=== PATIENT | male | born 1970 | race Caucasian/White ===

== ENCOUNTER 2017-07-26 17:43 | Emergency (ER) | payer OTHER ==
[~2017-07-26] VITALS: Ht 185.4 cm; Wt 104.3 kg
[~2017-07-26 17:43] MED LIST: 'PARAFON FORTE500 M1 PO; AUGMENTIN 875 M1 TAB PO; LISINOPRIL AND1 TA1 PO; PERCOCET 325 MG1 TA3 PO; PREDNISONE10 MG PO; VICODIN 500 MG-1 TAB PO
[2017-07-26] MEDS ORDERED: Motrin,Rufen800 MG PO (20:37)
[2017-07-26] MEDS ORDERED: CYCLOBENZAPRINE5 M3 PO (20:37)
== END 2017-07-26 20:49 | disposition home or self-care (01) ==
LOC: ED 17:43
DX: S49.91XA Unspecified injury of right shoulder and upper arm, initial encounter (principal); F17.200 Nicotine dependence, unspecified, uncomplicated; W19.XXXA Unspecified fall, initial encounter; Y93.89 Activity, other specified; Y92.009 Unspecified place in unspecified non-institutional (private) residence as the place of occurrence of the external cause; Y99.8 Other external cause status

== ENCOUNTER 2017-09-17 20:29 | Emergency (ER) | payer OTHER ==
[~2017-09-17] VITALS: Ht 185.4 cm; Wt 104.3 kg
[~2017-09-17 20:29] MED LIST changes: +CYCLOBENZAPRINE5 M3 PO; +Motrin,Rufen800 MG PO
[2017-09-17] MEDS ORDERED: PERCOCET 10-321 EACH PO (22:18)
[2017-09-17] MEDS ORDERED: ALPRAZOLAM0.5 M3 PO (22:18)
[2017-09-17 23:00] LABS: BASO % 0.7 % (0.0-1.0); EOS # 0.6 10*3/uL (0.0-0.4); HEMATOCRIT 35.4 % (42.0-52.0); HEMOGLOBIN 12.2 g/dl (14.0-18.0); LYMPH # 1.7 10*3/uL (1.3-4.4); LYMPH % 31.8 % (27.0-41.0); MEAN CELL VOLUME 87.4 fl (80.0-94.0); MEAN CORPUSCULAR HGB 30.1 pg (27.0-31.0); MEAN CORPUSCULAR HGB CONC 34.5 g/dl (33.0-37.0); MEAN PLATELET VOLUME 8.5 fl (9.6-12.3); MONO # 0.7 10*3/uL (0.1-1.0); MONO % 12.2 % (3.0-9.0); NEUT # 2.4 10*3/uL (2.3-7.9); NEUT % 44.1 % (47.0-73.0); PLATELET COUNT AUTOMATED 180 10*3/uL (130-400); RED BLOOD COUNT 4.05 10*6/uL (4.50-5.90); RED CELL DISTRI WIDTH 12.4 % (0-14.5); WHITE BLOOD COUNT 5.3 10*3/uL (4.8-10.8)
[2017-09-17 23:14] LABS: ACT PARTIAL THROMBO TIME 28.7 SECONDS (20.8-31.5)
[2017-09-17 23:16] LABS: ALBUMIN 3.3 gm/dl (3.1-4.5); ALKALINE PHOSPHATASE 62 U/L (45-117); BUN 19 mg/dl (7-24); CHLORIDE 100 mmol/L (98-107); CREATININE 0.96 mg/dL (0.70-1.30); POTASSIUM 3.8 mmol/L (3.5-5.1); SGOT/AST 20 IU/L (3-35); SGPT/ALT 26 U/L (12-78); SODIUM 135 mmol/L (136-145); TOTAL PROTEIN 6.5 gm/dL (6.4-8.2)
[2017-09-17 23:17] LABS: TROPONIN I < 0.015 ng/ml (<0.045)
== END 2017-09-18 02:45 | disposition short-term general hospital (02) ==
LOC: ED 20:29
PROVIDERS: Internal Medicine
DX: G93.9 Disorder of brain, unspecified (principal); F17.200 Nicotine dependence, unspecified, uncomplicated; Z79.899 Other long term (current) drug therapy

== ENCOUNTER 2017-11-13 10:33 | Emergency (ER) | payer OTHER ==
[~2017-11-13] VITALS: Ht 185.4 cm; Wt 106.6 kg
[~2017-11-13 10:33] MED LIST changes: +ALPRAZOLAM0.5 M3 PO; +PERCOCET 10-321 EACH PO
[2017-11-13 11:06] LABS: BASO % 0.3 % (0.0-1.0); EOS # 0.6 10*3/uL (0.0-0.4); EOS % 9.6 % (1.0-4.0); HEMOGLOBIN 11.2 g/dl (14.0-18.0); MEAN CELL VOLUME 88.1 fl (80.0-94.0); MEAN CORPUSCULAR HGB CONC 32.9 g/dl (33.0-37.0); MEAN PLATELET VOLUME 8.7 fl (9.6-12.3); MONO # 0.5 10*3/uL (0.1-1.0); MONO % 8.7 % (3.0-9.0); NEUT % 65.1 % (47.0-73.0); PLATELET COUNT AUTOMATED 234 10*3/uL (130-400); RED BLOOD COUNT 3.86 10*6/uL (4.50-5.90); WHITE BLOOD COUNT 6.1 10*3/uL (4.8-10.8)
[2017-11-13 11:24] LABS: ALBUMIN 2.9 gm/dl (3.1-4.5); ALKALINE PHOSPHATASE 57 U/L (45-117); BUN 12 mg/dl (7-24); CHLORIDE 106 mmol/L (98-107); CREATININE 0.86 mg/dL (0.70-1.30); SGOT/AST 19 IU/L (3-35); SGPT/ALT 25 U/L (12-78); SODIUM 138 mmol/L (136-145); TOTAL PROTEIN 6.6 gm/dL (6.4-8.2)
[2017-11-13 11:27] LABS: TROPONIN I 0.243 ng/ml (<0.045)
== END 2017-11-13 17:25 | disposition short-term general hospital (02) ==
LOC: ED 10:33
PROVIDERS: Nurse Practitioner Family
DX: J18.1 Lobar pneumonia, unspecified organism (principal); R79.89 Other specified abnormal findings of blood chemistry

== ENCOUNTER → 2017-11-24 | Outpatient (CLI) | payer OTHER ==
[2017-11-24 11:42] LABS: INTERNATIONAL NORM RATIO 2.6 (2.0-3.5)
== END | disposition home or self-care (01) ==
LOC: LAB 11:22
PROVIDERS: Specialist
DX: Z51.81 Encounter for therapeutic drug level monitoring (principal); Z79.01 Long term (current) use of anticoagulants

== ENCOUNTER → 2017-11-29 | Outpatient (CLI) | payer OTHER ==
[2017-11-29 14:35] LABS: INTERNATIONAL NORM RATIO 3.2 (2.0-3.5)
== END | disposition home or self-care (01) ==
LOC: LAB 13:42
PROVIDERS: Specialist
DX: I74.9 Embolism and thrombosis of unspecified artery (principal); I63.9 Cerebral infarction, unspecified

== ENCOUNTER → 2017-12-06 | Outpatient (CLI) | payer OTHER ==
[2017-12-06 10:08] LABS: BASO % 0.4 % (0.0-1.0); EOS # 0.6 10*3/uL (0.0-0.4); EOS % 9.3 % (1.0-4.0); HEMATOCRIT 34.8 % (42.0-52.0); HEMOGLOBIN 11.4 g/dl (14.0-18.0); LYMPH # 1.1 10*3/uL (1.3-4.4); MEAN CELL VOLUME 88.1 fl (80.0-94.0); MEAN CORPUSCULAR HGB 28.9 pg (27.0-31.0); MEAN CORPUSCULAR HGB CONC 32.8 g/dl (33.0-37.0); MEAN PLATELET VOLUME 8.7 fl (9.6-12.3); MONO # 0.7 10*3/uL (0.1-1.0); MONO % 10.5 % (3.0-9.0); NEUT # 4.3 10*3/uL (2.3-7.9); NEUT % 63.4 % (47.0-73.0); PLATELET COUNT AUTOMATED 250 10*3/uL (130-400); RED BLOOD COUNT 3.95 10*6/uL (4.50-5.90); RED CELL DISTRI WIDTH 13.5 % (0-14.5); WHITE BLOOD COUNT 6.8 10*3/uL (4.8-10.8)
[2017-12-06 10:11] LABS: INTERNATIONAL NORM RATIO 4.3 (2.0-3.5)
== END | disposition home or self-care (01) ==
LOC: LAB 09:50
PROVIDERS: Specialist; Student in an Organized Health Care Education/Training Program
DX: C34.81 Malignant neoplasm of overlapping sites of right bronchus and lung (principal); I63.40 Cerebral infarction due to embolism of unspecified cerebral artery

== ENCOUNTER → 2017-12-13 | Outpatient (CLI) | payer OTHER ==
[2017-12-13 12:50] LABS: INTERNATIONAL NORM RATIO 2.3 (2.0-3.5)
== END | disposition home or self-care (01) ==
LOC: LAB 12:28
PROVIDERS: Specialist
DX: I63.8 Other cerebral infarction (principal); I76 Septic arterial embolism

== ENCOUNTER → 2017-12-21 | Outpatient (CLI) | payer OTHER ==
[2017-12-21 09:42] LABS: INTERNATIONAL NORM RATIO 1.1 (2.0-3.5)
== END | disposition home or self-care (01) ==
LOC: LAB 09:17
PROVIDERS: Specialist
DX: I74.9 Embolism and thrombosis of unspecified artery (principal); I63.40 Cerebral infarction due to embolism of unspecified cerebral artery

== ENCOUNTER → 2018-01-03 | Outpatient (CLI) | payer OTHER ==
[2018-01-03 12:00] LABS: INTERNATIONAL NORM RATIO 1.8 (2.0-3.5)
== END | disposition home or self-care (01) ==
LOC: LAB 11:38
PROVIDERS: Specialist
DX: I74.9 Embolism and thrombosis of unspecified artery (principal); I63.9 Cerebral infarction, unspecified

== ENCOUNTER → 2018-01-10 | Outpatient (CLI) | payer OTHER ==
[2018-01-10 14:27] LABS: INTERNATIONAL NORM RATIO 2.9 (2.0-3.5)
== END | disposition home or self-care (01) ==
LOC: LAB 13:59
PROVIDERS: Specialist
DX: I63.40 Cerebral infarction due to embolism of unspecified cerebral artery (principal); I23.6 Thrombosis of atrium, auricular appendage, and ventricle as current complications following acute myocardial infarction

== ENCOUNTER → 2018-01-17 | Outpatient (CLI) | payer OTHER ==
[2018-01-17 09:45] LABS: INTERNATIONAL NORM RATIO 2.3 (2.0-3.5)
== END | disposition home or self-care (01) ==
LOC: LAB 09:21
PROVIDERS: Specialist
DX: I63.40 Cerebral infarction due to embolism of unspecified cerebral artery (principal)

== ENCOUNTER → 2018-01-25 | Outpatient (CLI) | payer OTHER ==
[2018-01-25 12:31] LABS: INTERNATIONAL NORM RATIO 1.8 (2.0-3.5)
== END | disposition home or self-care (01) ==
LOC: LAB 10:30
PROVIDERS: Specialist
DX: I74.9 Embolism and thrombosis of unspecified artery (principal); I63.9 Cerebral infarction, unspecified

== ENCOUNTER → 2018-01-31 | Outpatient (CLI) | payer OTHER ==
[~2018-01-31] MED LIST changes: +AMOXICILLIN500 M2 PO
[2018-01-31 10:33] LABS: INTERNATIONAL NORM RATIO 2.5 (2.0-3.5)
== END | disposition home or self-care (01) ==
LOC: LAB 10:01
PROVIDERS: Specialist
DX: I63.9 Cerebral infarction, unspecified (principal); I74.9 Embolism and thrombosis of unspecified artery

== ENCOUNTER 2018-02-06 10:35 | Emergency (ER) | payer OTHER ==
[~2018-02-06] VITALS: Ht 182.8 cm; Wt 108.9 kg
[~2018-02-06 10:35] MED LIST changes: -AMOXICILLIN500 M2 PO
[2018-02-06] MEDS ORDERED: AMOXICILLIN500 M2 PO (10:43)
== END 2018-02-06 11:21 | disposition home or self-care (01) ==
LOC: ED 10:35
DX: H60.92 Unspecified otitis externa, left ear (principal); H66.92 Otitis media, unspecified, left ear

== ENCOUNTER → 2018-02-07 | Outpatient (CLI) | payer OTHER ==
[~2018-02-07] MED LIST changes: +AMOXICILLIN500 M2 PO
[2018-02-07 09:40] LABS: INTERNATIONAL NORM RATIO 2.1 (2.0-3.5)
== END | disposition home or self-care (01) ==
LOC: LAB 09:18
PROVIDERS: Specialist
DX: I21.9 Acute myocardial infarction, unspecified (principal)

== ENCOUNTER → 2018-02-15 | Outpatient (CLI) | payer OTHER ==
[2018-02-15 10:38] LABS: INTERNATIONAL NORM RATIO 2.2 (2.0-3.5)
== END | disposition home or self-care (01) ==
LOC: LAB 10:12
PROVIDERS: Specialist
DX: I74.9 Embolism and thrombosis of unspecified artery (principal); I63.9 Cerebral infarction, unspecified

== ENCOUNTER → 2018-02-22 | Outpatient (CLI) | payer OTHER ==
[2018-02-22 10:37] LABS: INTERNATIONAL NORM RATIO 1.6 (2.0-3.5)
== END | disposition home or self-care (01) ==
LOC: LAB 10:02
PROVIDERS: Specialist
DX: I63.9 Cerebral infarction, unspecified (principal); I74.9 Embolism and thrombosis of unspecified artery

== ENCOUNTER → 2018-02-28 | Outpatient (CLI) | payer OTHER ==
[~2018-02-28] MED LIST changes: +ASPIRIN ADULT L81 M1 PO; +COUMADIN10 M1 PO; +COUMADIN7.5 M1 PO
[2018-02-28 10:27] LABS: INTERNATIONAL NORM RATIO 1.8 (2.0-3.5)
== END | disposition home or self-care (01) ==
LOC: LAB 10:00
PROVIDERS: Specialist
DX: I63.9 Cerebral infarction, unspecified (principal); I74.9 Embolism and thrombosis of unspecified artery

== ENCOUNTER → 2018-03-07 | Outpatient (CLI) | payer OTHER | END | disposition home or self-care (01) | LOC: LAB 09:53 | PROVIDERS: Specialist | DX: I63.9 Cerebral infarction, unspecified (principal); I74.9 Embolism and thrombosis of unspecified artery ==

== ENCOUNTER → 2018-03-14 | Outpatient (CLI) | payer OTHER ==
[2018-03-14 13:05] LABS: INTERNATIONAL NORM RATIO 1.7 (2.0-3.5)
== END | disposition home or self-care (01) ==
LOC: LAB 11:16
PROVIDERS: Specialist
DX: I74.9 Embolism and thrombosis of unspecified artery (principal); I63.9 Cerebral infarction, unspecified

== ENCOUNTER → 2018-03-21 | Outpatient (CLI) | payer OTHER ==
[2018-03-21 10:35] LABS: INTERNATIONAL NORM RATIO 1.8 (2.0-3.5)
[2018-03-21 10:53] LABS: BODY FLUID WBC 165 /uL
[2018-03-21 11:41] LABS: BF LYMPHOCYTES 37 %; BF MACROPHAGES 56 %; BF NEUTROPHILS 7 %
== END ==
LOC: LAB 10:10
PROVIDERS: Orthopaedic Surgery; Specialist
DX: I74.9 Embolism and thrombosis of unspecified artery (principal); M25.469 Effusion, unspecified knee

== ENCOUNTER → 2018-03-28 | Outpatient (CLI) | payer OTHER ==
[2018-03-28 08:29] LABS: INTERNATIONAL NORM RATIO 2.1 (2.0-3.5)
== END | disposition home or self-care (01) ==
LOC: LAB 08:06
PROVIDERS: Specialist
DX: I23.6 Thrombosis of atrium, auricular appendage, and ventricle as current complications following acute myocardial infarction (principal); I63.40 Cerebral infarction due to embolism of unspecified cerebral artery

== ENCOUNTER → 2018-04-04 | Outpatient (CLI) | payer OTHER ==
[2018-04-04 12:03] LABS: INTERNATIONAL NORM RATIO 1.4 (2.0-3.5)
== END | disposition home or self-care (01) ==
LOC: LAB 11:39
PROVIDERS: Specialist
DX: I63.40 Cerebral infarction due to embolism of unspecified cerebral artery (principal); I74.2 Embolism and thrombosis of arteries of the upper extremities

== ENCOUNTER 2018-04-05 20:33 | Inpatient (IN) | payer OTHER ==
[~2018-04-05] VITALS: Ht 185.4 cm; Wt 105.9 kg
--- NOTE | ~2018-04-05 | EKG ---
[place], [place] ELECTROCARDIOGRAM REPORT NAME: DUKE RAMOS JR UNIT #: [id number] ROOM: 424 DOCTOR: JESSICA DRAFT REPORT BIRTHDATE: [birth year] [facility] Test Date: 2018-04-06 Test Time: 02:52:36 Pat Name: DUKE RAMOS Department: Room: 424 Gender: M Associate Director Finance: Epifanio Artis : 1970 Requested By: CJ NETTLES Order Number: [id number] Reading MD: Akbar Mars MD Measurements Intervals [place] Rate: 64 P: 48 [place]: 183 QRS: 2 QRSD: 111 T: 15 QT: 414 QTc: 427 Interpretive Statements Sinus rhythm Abnormal R-wave progression, early transition Baseline wander in lead(s) V2 Electronically Signed On 04-06-2018 15:53:10 PDT by Akbar Mars MD CM:EKGRPT:ELECTROCARDIOGRAM REPORT [id number] CJ HORTON DRAFT REPORT CJ NETTLES DO
--- NOTE | ~2018-04-05 | EKG ---
[place], [place] ELECTROCARDIOGRAM REPORT NAME: DUKE RAMOS JR UNIT #: [id number] ROOM: 424 DOCTOR: JESSICA DRAFT REPORT BIRTHDATE: [birth year] [facility] Test Date: 2018-04-05 Test Time: 20:40:29 Pat Name: DUKE RAMOS Department: Room: 424 Gender: M Medical Care Administrator: Pricila Vazquez : 1970 Requested By: CJ NETTLES Order Number: [id number] Reading MD: Akbar Mars MD Measurements Intervals [place] Rate: 67 P: 38 [place]: 183 QRS: -16 QRSD: 103 T: 7 QT: 393 QTc: 415 Interpretive Statements Sinus rhythm Borderline left axis deviation Abnormal R-wave progression, early transition Electronically Signed On 04-06-2018 15:49:07 PDT by Akbar Mars MD CM:EKGRPT:ELECTROCARDIOGRAM REPORT [id number] CJ HORTON DRAFT REPORT CJ NETTLES DO
[~2018-04-05 20:33] MED LIST changes: -ASPIRIN ADULT L81 M1 PO; -COUMADIN10 M1 PO; -COUMADIN7.5 M1 PO
[2018-04-05 20:36] VITALS: BP 163/105
[2018-04-05 20:48] LABS: BASO % 0.7 % (0.0-1.0); HEMATOCRIT 36.3 % (42.0-52.0); LYMPH # 0.8 10*3/uL (1.3-4.4); LYMPH % 28.2 % (27.0-41.0); MEAN CELL VOLUME 83.6 fl (80.0-94.0); MEAN CORPUSCULAR HGB 27.6 pg (27.0-31.0); MEAN CORPUSCULAR HGB CONC 33.1 g/dl (33.0-37.0); MEAN PLATELET VOLUME 8.8 fl (9.6-12.3); MONO # 0.4 10*3/uL (0.1-1.0); MONO % 14.4 % (3.0-9.0); NEUT # 1.6 10*3/uL (2.3-7.9); NEUT % 55.4 % (47.0-73.0); PLATELET COUNT AUTOMATED 219 10*3/uL (130-400); RED BLOOD COUNT 4.34 10*6/uL (4.50-5.90); RED CELL DISTRI WIDTH 14.1 % (0-14.5); WHITE BLOOD COUNT 2.9 10*3/uL (4.8-10.8)
[2018-04-05 20:58] LABS: ACT PARTIAL THROMBO TIME 31.2 SECONDS (20.8-31.5); INTERNATIONAL NORM RATIO 1.3 (2.0-3.5)
[2018-04-05 21:04] LABS: ALBUMIN 3.4 gm/dl (3.1-4.5); ALKALINE PHOSPHATASE 86 U/L (45-117); BUN 12 mg/dl (7-24); CHLORIDE 100 mmol/L (98-107); CREATININE 0.88 mg/dL (0.70-1.30); POTASSIUM 4.1 mmol/L (3.5-5.1); SGOT/AST 17 IU/L (3-35); SGPT/ALT 23 U/L (12-78); SODIUM 133 mmol/L (136-145); TOTAL PROTEIN 7.3 gm/dL (6.4-8.2)
[2018-04-05 21:12] LABS: TROPONIN I < 0.015 ng/ml (<0.045)
[2018-04-05 21:37] VITALS: BP 106/80
[2018-04-05 22:16] VITALS: BP 151/108
[2018-04-05 22:51] VITALS: BP 144/96
[2018-04-05] MEDS ORDERED: COUMADIN7.5 M1 PO (23:31)
[2018-04-05] MEDS ORDERED: COUMADIN10 M1 PO (23:31)
[2018-04-05] MEDS ORDERED: ASPIRIN ADULT L81 M1 PO (23:32)
[2018-04-06] VITALS: BP 152/97
[2018-04-06 02:42] LABS: BASO % 0.3 % (0.0-1.0); EOS # 0.1 10*3/uL (0.0-0.4); EOS % 1.9 % (1.0-4.0); HEMATOCRIT 34.2 % (42.0-52.0); HEMOGLOBIN 11.4 g/dl (14.0-18.0); LYMPH % 31.1 % (27.0-41.0); MEAN CELL VOLUME 83.2 fl (80.0-94.0); MEAN CORPUSCULAR HGB 27.7 pg (27.0-31.0); MEAN CORPUSCULAR HGB CONC 33.3 g/dl (33.0-37.0); MEAN PLATELET VOLUME 8.3 fl (9.6-12.3); MONO # 0.6 10*3/uL (0.1-1.0); MONO % 18.1 % (3.0-9.0); NEUT # 1.5 10*3/uL (2.3-7.9); NEUT % 48.3 % (47.0-73.0); PLATELET COUNT AUTOMATED 190 10*3/uL (130-400); RED BLOOD COUNT 4.11 10*6/uL (4.50-5.90); RED CELL DISTRI WIDTH 14.3 % (0-14.5); WHITE BLOOD COUNT 3.2 10*3/uL (4.8-10.8)
[2018-04-06 02:55] LABS: ACT PARTIAL THROMBO TIME 30.6 SECONDS (20.8-31.5); INTERNATIONAL NORM RATIO 1.4 (2.0-3.5)
[2018-04-06 02:57] LABS: BUN 10 mg/dl (7-24); CHLORIDE 102 mmol/L (98-107); CREATININE 0.82 mg/dL (0.70-1.30); POTASSIUM 3.5 mmol/L (3.5-5.1); SODIUM 135 mmol/L (136-145)
[2018-04-06 03:02] LABS: CHOLESTEROL 145 mg/dL (<200); FREE T4 0.91 ng/dl (0.76-1.46); HDL CHOLESTEROL 51 mg/dl (40-60); LDL CHOLESTEROL 81 mg/dL (9-159); PHOSPHOROUS 3.4 mg/dL (2.5-4.9); TRIGLYCERIDES 63 mg/dl (<150); VLDL CHOLESTEROL 13 mg/dL (6-40)
[2018-04-06 06:38] LABS: VITAMIN D, 25-HYDROXY 45.7 ng/mL (30-100)
[2018-04-06 08:00] VITALS: BP 136/90
== END 2018-04-06 10:45 | disposition home or self-care (01) | DRG 313 ==
LOC: ED 20:33 → EDHOLD 21:30 → 4E 21:51
PROVIDERS: Student in an Organized Health Care Education/Training Program
DX: R07.89 Other chest pain (principal); I25.2 Old myocardial infarction; C78.7 Secondary malignant neoplasm of liver and intrahepatic bile duct; C79.31 Secondary malignant neoplasm of brain; E44.1 Mild protein-calorie malnutrition; C79.51 Secondary malignant neoplasm of bone; C34.90 Malignant neoplasm of unspecified part of unspecified bronchus or lung; E87.1 Hypo-osmolality and hyponatremia; C79.89 Secondary malignant neoplasm of other specified sites; I51.3 Intracardiac thrombosis, not elsewhere classified; D64.9 Anemia, unspecified; D72.819 Decreased white blood cell count, unspecified; E78.5 Hyperlipidemia, unspecified; R79.1 Abnormal coagulation profile; G89.29 Other chronic pain; M54.5 Low back pain; I10 Essential (primary) hypertension; R00.1 Bradycardia, unspecified; Z87.01 Personal history of pneumonia (recurrent); Z86.73 Personal history of transient ischemic attack (TIA), and cerebral infarction without residual deficits; Z87.891 Personal history of nicotine dependence; Z82.49 Family history of ischemic heart disease and other diseases of the circulatory system; Z79.82 Long term (current) use of aspirin; Z79.01 Long term (current) use of anticoagulants; Z80.42 Family history of malignant neoplasm of prostate; Z84.89 Family history of other specified conditions; Z79.899 Other long term (current) drug therapy; Z68.30 Body mass index [BMI] 30.0-30.9, adult

== ENCOUNTER → 2018-04-26 | Outpatient (CLI) | payer OTHER ==
[~2018-04-26] MED LIST changes: +ASPIRIN ADULT L81 M1 PO; +COUMADIN10 M1 PO; +COUMADIN7.5 M1 PO
[2018-04-26 10:14] LABS: INTERNATIONAL NORM RATIO 3.2 (2.0-3.5)
== END | disposition home or self-care (01) ==
LOC: LAB 09:49
PROVIDERS: Specialist
DX: I63.40 Cerebral infarction due to embolism of unspecified cerebral artery (principal); I23.6 Thrombosis of atrium, auricular appendage, and ventricle as current complications following acute myocardial infarction

== ENCOUNTER → 2018-05-10 | Outpatient (CLI) | payer OTHER ==
[2018-05-10 10:38] LABS: BASO % 0.3 % (0.0-1.0); EOS # 0.1 10*3/uL (0.0-0.4); EOS % 2.2 % (1.0-4.0); HEMATOCRIT 36.9 % (42.0-52.0); HEMOGLOBIN 12.1 g/dl (14.0-18.0); LYMPH # 0.7 10*3/uL (1.3-4.4); LYMPH % 19.8 % (27.0-41.0); MEAN CELL VOLUME 85.4 fl (80.0-94.0); MEAN CORPUSCULAR HGB CONC 32.8 g/dl (33.0-37.0); MEAN PLATELET VOLUME 8.6 fl (9.6-12.3); MONO # 0.5 10*3/uL (0.1-1.0); MONO % 13.6 % (3.0-9.0); NEUT # 2.3 10*3/uL (2.3-7.9); NEUT % 63.8 % (47.0-73.0); PLATELET COUNT AUTOMATED 202 10*3/uL (130-400); RED BLOOD COUNT 4.32 10*6/uL (4.50-5.90); RED CELL DISTRI WIDTH 15.1 % (0-14.5); WHITE BLOOD COUNT 3.6 10*3/uL (4.8-10.8)
[2018-05-10 11:05] LABS: INTERNATIONAL NORM RATIO 2.2 (2.0-3.5)
[2018-05-10 11:10] LABS: ALBUMIN 3.6 gm/dl (3.1-4.5); BUN 17 mg/dl (7-24); CHLORIDE 103 mmol/L (98-107); CHOLESTEROL 187 mg/dL (<200); CREATININE 1.08 mg/dL (0.70-1.30); POTASSIUM 4.4 mmol/L (3.5-5.1); SGOT/AST 19 IU/L (3-35); SGPT/ALT 26 U/L (12-78); SODIUM 137 mmol/L (136-145); TRIGLYCERIDES 69 mg/dl (<150); VLDL CHOLESTEROL 14 mg/dL (6-40)
[2018-05-10 11:17] LABS: ALKALINE PHOSPHATASE 68 U/L (45-117); HDL CHOLESTEROL 65 mg/dl (40-60); LDL CHOLESTEROL 108 mg/dL (9-159); TOTAL PROTEIN 7.2 gm/dL (6.4-8.2)
== END | disposition home or self-care (01) ==
LOC: LAB 09:47
PROVIDERS: Specialist
DX: I25.10 Atherosclerotic heart disease of native coronary artery without angina pectoris (principal); I10 Essential (primary) hypertension; I63.40 Cerebral infarction due to embolism of unspecified cerebral artery; E78.2 Mixed hyperlipidemia; I63.8 Other cerebral infarction

== ENCOUNTER → 2018-05-16 | Outpatient (CLI) | payer OTHER ==
[2018-05-16 10:03] LABS: INTERNATIONAL NORM RATIO 2.3 (2.0-3.5)
== END | disposition home or self-care (01) ==
LOC: LAB 09:42
PROVIDERS: Specialist
DX: I74.9 Embolism and thrombosis of unspecified artery (principal); I63.8 Other cerebral infarction

== ENCOUNTER → 2018-06-06 | Outpatient (CLI) | payer OTHER ==
[2018-06-06 10:46] LABS: INTERNATIONAL NORM RATIO 1.9 (2.0-3.5)
== END | disposition home or self-care (01) ==
LOC: LAB 10:12
PROVIDERS: Specialist
DX: I63.40 Cerebral infarction due to embolism of unspecified cerebral artery (principal); I51.3 Intracardiac thrombosis, not elsewhere classified

== ENCOUNTER → 2018-06-20 | Outpatient (CLI) | payer OTHER ==
[2018-06-20 15:45] LABS: INTERNATIONAL NORM RATIO 3.6 (2.0-3.5)
== END | disposition home or self-care (01) ==
LOC: LAB 15:12
PROVIDERS: Specialist
DX: Z79.01 Long term (current) use of anticoagulants (principal)

== ENCOUNTER → 2018-07-25 | Outpatient (CLI) | payer OTHER ==
[2018-07-25 12:14] LABS: INTERNATIONAL NORM RATIO 2.8 (2.0-3.5)
== END ==
LOC: LAB 10:50
PROVIDERS: Specialist
DX: Z79.01 Long term (current) use of anticoagulants (principal)

== ENCOUNTER → 2018-08-08 | Outpatient (CLI) | payer OTHER ==
[2018-08-08 13:52] LABS: INTERNATIONAL NORM RATIO 2.7 (2.0-3.5)
== END | disposition home or self-care (01) ==
LOC: LAB 13:19
PROVIDERS: Specialist
DX: Z79.01 Long term (current) use of anticoagulants (principal)

== ENCOUNTER → 2018-08-29 | Outpatient (CLI) | payer OTHER ==
[~2018-08-29] MED LIST changes: +'zyrtec10 MG PO; +ASPIRIN81 M1 PO; +CARDURA1 M1 PO; +COREG25 MG PO; +COUMADIN5 M2 PO; +Ciprodex 0.3%-7.5 ML OT; +FLONASE ALLERG9.9 ML NAS; +LEVAQUIN750 M1 PO; +MUCINEX ER600 MG PO; +NICOTINE POLACRI2 MG PO; +OMNICEF300 MG PO; +OXYCODONE HCL15 MG PO; +PROAIR HFA8.5 GM INH; +PROMETHAZINE HC50 M1 PO; +TRAZODONE50 MG PO; +VISTARIL25 M2 PO; +WARFARIN SOD5 MG PO; +XANAX0.5 MG PO
[2018-08-29 15:54] LABS: INTERNATIONAL NORM RATIO 2.8 (2.0-3.5)
== END | disposition home or self-care (01) ==
LOC: LAB 15:34
PROVIDERS: Specialist
DX: Z79.01 Long term (current) use of anticoagulants (principal)

== ENCOUNTER → 2018-09-12 | Outpatient (CLI) | payer OTHER ==
[2018-09-12 12:50] LABS: INTERNATIONAL NORM RATIO 2.2 (2.0-3.5)
== END | disposition home or self-care (01) ==
LOC: LAB 11:48
PROVIDERS: Specialist
DX: Z79.01 Long term (current) use of anticoagulants (principal)

== ENCOUNTER → 2018-09-26 | Outpatient (CLI) | payer OTHER ==
[2018-09-26 13:29] LABS: INTERNATIONAL NORM RATIO 2.5 (2.0-3.5)
== END | disposition home or self-care (01) ==
LOC: LAB 12:24
PROVIDERS: Specialist
DX: C79.31 Secondary malignant neoplasm of brain (principal); I23.6 Thrombosis of atrium, auricular appendage, and ventricle as current complications following acute myocardial infarction; I63.40 Cerebral infarction due to embolism of unspecified cerebral artery; Z79.01 Long term (current) use of anticoagulants

== ENCOUNTER → 2018-10-10 | Outpatient (CLI) | payer OTHER | END | disposition home or self-care (01) | LOC: LAB 13:22 | PROVIDERS: Specialist | DX: I23.6 Thrombosis of atrium, auricular appendage, and ventricle as current complications following acute myocardial infarction (principal); I63.40 Cerebral infarction due to embolism of unspecified cerebral artery; C79.31 Secondary malignant neoplasm of brain; Z79.01 Long term (current) use of anticoagulants ==

== ENCOUNTER → 2018-10-18 | Outpatient (CLI) | payer OTHER ==
[2018-10-18 12:56] LABS: INTERNATIONAL NORM RATIO 1.5 (2.0-3.5)
== END | disposition home or self-care (01) ==
LOC: LAB 11:41
PROVIDERS: Specialist
DX: I63.40 Cerebral infarction due to embolism of unspecified cerebral artery (principal); C79.31 Secondary malignant neoplasm of brain; I23.6 Thrombosis of atrium, auricular appendage, and ventricle as current complications following acute myocardial infarction; Z79.01 Long term (current) use of anticoagulants

== ENCOUNTER → 2018-10-25 | Outpatient (CLI) | payer OTHER ==
[2018-10-25 13:42] LABS: INTERNATIONAL NORM RATIO 2.6 (2.0-3.5)
== END | disposition home or self-care (01) ==
LOC: LAB 12:47
PROVIDERS: Specialist
DX: C79.31 Secondary malignant neoplasm of brain (principal); I23.6 Thrombosis of atrium, auricular appendage, and ventricle as current complications following acute myocardial infarction; I63.40 Cerebral infarction due to embolism of unspecified cerebral artery; Z79.01 Long term (current) use of anticoagulants

== ENCOUNTER → 2018-11-07 | Outpatient (CLI) | payer OTHER | END | disposition home or self-care (01) | LOC: LAB 16:46 | PROVIDERS: Specialist | DX: I63.40 Cerebral infarction due to embolism of unspecified cerebral artery (principal); C79.31 Secondary malignant neoplasm of brain; I23.6 Thrombosis of atrium, auricular appendage, and ventricle as current complications following acute myocardial infarction ==

== ENCOUNTER → 2018-12-07 | Outpatient (CLI) | payer OTHER | END | disposition home or self-care (01) | LOC: CT 12-03 11:00 | DX: M19.011 Primary osteoarthritis, right shoulder (principal) ==

== ENCOUNTER → 2018-12-12 | Outpatient (CLI) | payer OTHER ==
[2018-12-12 14:33] LABS: INTERNATIONAL NORM RATIO 4.2 (2.0-3.5)
== END | disposition home or self-care (01) ==
LOC: LAB 13:28
PROVIDERS: Specialist
DX: I23.6 Thrombosis of atrium, auricular appendage, and ventricle as current complications following acute myocardial infarction (principal); C79.31 Secondary malignant neoplasm of brain; Z79.01 Long term (current) use of anticoagulants

== ENCOUNTER → 2018-12-28 | Outpatient (CLI) | payer OTHER ==
[2018-12-28 14:38] LABS: INTERNATIONAL NORM RATIO 1.6 (2.0-3.5)
== END | disposition home or self-care (01) ==
LOC: LAB 13:33
PROVIDERS: Specialist
DX: I63.40 Cerebral infarction due to embolism of unspecified cerebral artery (principal); C79.31 Secondary malignant neoplasm of brain; I23.6 Thrombosis of atrium, auricular appendage, and ventricle as current complications following acute myocardial infarction; Z79.01 Long term (current) use of anticoagulants

== ENCOUNTER → 2019-01-09 | Outpatient (CLI) | payer OTHER ==
[2019-01-09 15:48] LABS: INTERNATIONAL NORM RATIO 4.3 (2.0-3.5)
== END | disposition home or self-care (01) ==
LOC: LAB 15:01
PROVIDERS: Specialist
DX: I63.40 Cerebral infarction due to embolism of unspecified cerebral artery (principal); C79.31 Secondary malignant neoplasm of brain; I23.6 Thrombosis of atrium, auricular appendage, and ventricle as current complications following acute myocardial infarction

== ENCOUNTER → 2019-02-14 | Outpatient (CLI) | payer OTHER ==
[2019-02-14 13:59] LABS: INTERNATIONAL NORM RATIO 1.8 (2.0-3.5)
== END | disposition home or self-care (01) ==
LOC: LAB 12:52
PROVIDERS: Specialist
DX: I63.40 Cerebral infarction due to embolism of unspecified cerebral artery (principal); C79.31 Secondary malignant neoplasm of brain; I23.6 Thrombosis of atrium, auricular appendage, and ventricle as current complications following acute myocardial infarction

== ENCOUNTER → 2019-03-07 | Outpatient (CLI) | payer OTHER ==
[2019-03-07 13:15] LABS: INTERNATIONAL NORM RATIO 1.9 (2.0-3.5)
== END | disposition home or self-care (01) ==
LOC: LAB 11:58
PROVIDERS: Specialist
DX: I63.40 Cerebral infarction due to embolism of unspecified cerebral artery (principal); C79.31 Secondary malignant neoplasm of brain; I23.6 Thrombosis of atrium, auricular appendage, and ventricle as current complications following acute myocardial infarction; Z79.01 Long term (current) use of anticoagulants

== ENCOUNTER → 2019-03-14 | Outpatient (CLI) | payer OTHER ==
[2019-03-14 15:40] LABS: INTERNATIONAL NORM RATIO 2.8 (2.0-3.5)
== END | disposition home or self-care (01) ==
LOC: LAB 15:10
PROVIDERS: Specialist
DX: I63.40 Cerebral infarction due to embolism of unspecified cerebral artery (principal); C79.31 Secondary malignant neoplasm of brain; I23.6 Thrombosis of atrium, auricular appendage, and ventricle as current complications following acute myocardial infarction; Z79.01 Long term (current) use of anticoagulants

== ENCOUNTER → 2019-03-27 | Outpatient (CLI) | payer OTHER ==
[2019-03-27 09:50] LABS: INTERNATIONAL NORM RATIO 1.4 (2.0-3.5)
== END | disposition home or self-care (01) ==
LOC: LAB 09:01
PROVIDERS: Specialist
DX: I23.6 Thrombosis of atrium, auricular appendage, and ventricle as current complications following acute myocardial infarction (principal); I63.40 Cerebral infarction due to embolism of unspecified cerebral artery; C79.31 Secondary malignant neoplasm of brain; Z79.01 Long term (current) use of anticoagulants

== ENCOUNTER → 2019-04-03 | Outpatient (CLI) | payer OTHER ==
[2019-04-03 15:45] LABS: INTERNATIONAL NORM RATIO 3.2 (2.0-3.5)
== END | disposition home or self-care (01) ==
LOC: LAB 15:21
PROVIDERS: Specialist
DX: I23.6 Thrombosis of atrium, auricular appendage, and ventricle as current complications following acute myocardial infarction (principal); C79.31 Secondary malignant neoplasm of brain; I63.40 Cerebral infarction due to embolism of unspecified cerebral artery; Z79.01 Long term (current) use of anticoagulants

== ENCOUNTER → 2019-04-17 | Outpatient (CLI) | payer OTHER ==
[2019-04-17 14:27] LABS: INTERNATIONAL NORM RATIO 2.8 (2.0-3.5)
== END | disposition home or self-care (01) ==
LOC: LAB 13:36
PROVIDERS: Specialist
DX: I63.40 Cerebral infarction due to embolism of unspecified cerebral artery (principal); I23.6 Thrombosis of atrium, auricular appendage, and ventricle as current complications following acute myocardial infarction; C79.31 Secondary malignant neoplasm of brain; Z79.01 Long term (current) use of anticoagulants

== ENCOUNTER → 2019-05-04 | Outpatient (CLI) | payer OTHER ==
[2019-05-04 13:09] LABS: INTERNATIONAL NORM RATIO 4.1 (2.0-3.5)
== END | disposition home or self-care (01) ==
LOC: LAB 11:55
PROVIDERS: Specialist
DX: I63.40 Cerebral infarction due to embolism of unspecified cerebral artery (principal); C79.31 Secondary malignant neoplasm of brain; I23.6 Thrombosis of atrium, auricular appendage, and ventricle as current complications following acute myocardial infarction

== ENCOUNTER → 2019-05-15 | Outpatient (CLI) | payer OTHER ==
[2019-05-15 15:39] LABS: INTERNATIONAL NORM RATIO 1.7 (2.0-3.5)
== END | disposition home or self-care (01) ==
LOC: LAB 15:13
PROVIDERS: Specialist
DX: I63.40 Cerebral infarction due to embolism of unspecified cerebral artery (principal); C79.31 Secondary malignant neoplasm of brain; I23.6 Thrombosis of atrium, auricular appendage, and ventricle as current complications following acute myocardial infarction

== ENCOUNTER 2019-05-21 07:22 | Emergency (ER) | payer OTHER ==
[~2019-05-21] VITALS: Ht 182.8 cm; Wt 108.0 kg
--- NOTE | ~2019-05-21 | EKG ---
[place], [place] ELECTROCARDIOGRAM REPORT NAME: DUKE RAMOS JR UNIT #: [id number] ROOM: DOCTOR: EPIPHANY DRAFT REPORT BIRTHDATE: [birth year] [facility] Test Date: 2019-05-21 Test Time: 07:25:19 Pat Name: DUKE RAMOS Department: Room: Gender: Basket Person: Pricila Vazquez : 1970 Requested By: JORGE MUNOZ Order Number: [id number] Reading MD: Wen Smiley MD Measurements Intervals [place] Rate: 107 P: 54 [place]: 169 QRS: -34 QRSD: 116 T: 66 QT: 308 QTc: 411 Interpretive Statements Sinus tachycardia Probable left atrial enlargement Nonspecific intraventricular conduction delay ST elev, probable normal early repol pattern Baseline wander in lead(s) V6 Compared to ECG 10/26/2018 14:29:38 Intraventricular conduction delay now present Sinus rhythm no longer present ST (T wave) deviation still present Electronically Signed On 05-21-2019 12:23:15 PDT by Wen Smiley MD CM:EKGRPT:ELECTROCARDIOGRAM REPORT [id number] JORGE MUNOZ MD [facility] DRAFT REPORT JORGE MUNOZ MD
[2019-05-21 07:50] LABS: MEAN CORPUSCULAR HGB 29.3 pg (27.0-31.0); MEAN CORPUSCULAR HGB CONC 33.3 g/dl (33.0-37.0); MEAN PLATELET VOLUME 8.8 fl (9.6-12.3); PLATELET COUNT AUTOMATED 123 10*3/uL (130-400); RED BLOOD COUNT 3.41 10*6/uL (4.50-5.90); RED CELL DISTRI WIDTH 14.4 % (0-14.5)
[2019-05-21 08:07] LABS: ACT PARTIAL THROMBO TIME 73.7 SECONDS (20.0-32.1)
[2019-05-21 08:09] LABS: ALBUMIN 2.6 gm/dl (3.1-4.5); ALKALINE PHOSPHATASE 64 U/L (45-117); BUN 20 mg/dl (7-24); CHLORIDE 96 mmol/L (98-107); CREATININE 1.16 mg/dL (0.70-1.30); POTASSIUM 4.1 mmol/L (3.5-5.1); SGOT/AST 26 IU/L (3-35); SGPT/ALT 26 U/L (12-78); SODIUM 129 mmol/L (136-145)
[2019-05-21 08:10] LABS: INTERNATIONAL NORM RATIO 4.8 (2.0-3.5)
[2019-05-21 08:14] LABS: PLATELET SUFFICIENCY LOW (NORMAL); ROULEAUX MODERATE; TOTAL CELLS COUNTED 100 #CELLS
[2019-05-21 08:20] LABS: TROPONIN I < 0.015 ng/ml (<0.045)
== END 2019-05-21 11:53 | disposition short-term general hospital (02) ==
LOC: ED 07:22
PROVIDERS: Emergency Medicine
DX: A41.9 Sepsis, unspecified organism (principal); J18.9 Pneumonia, unspecified organism; J96.00 Acute respiratory failure, unspecified whether with hypoxia or hypercapnia; E87.1 Hypo-osmolality and hyponatremia; D61.810 Antineoplastic chemotherapy induced pancytopenia; C34.90 Malignant neoplasm of unspecified part of unspecified bronchus or lung; I25.2 Old myocardial infarction; E78.5 Hyperlipidemia, unspecified; I10 Essential (primary) hypertension; Z87.891 Personal history of nicotine dependence; Z86.73 Personal history of transient ischemic attack (TIA), and cerebral infarction without residual deficits; Z85.841 Personal history of malignant neoplasm of brain; Z79.01 Long term (current) use of anticoagulants; Z79.82 Long term (current) use of aspirin; Z79.899 Other long term (current) drug therapy

== ENCOUNTER → 2020-04-04 | Outpatient (CLI) | payer OTHER | END | disposition home or self-care (01) | LOC: COVID19 01:30 | DX: Z03.818 Encounter for observation for suspected exposure to other biological agents ruled out (principal) ==

== ENCOUNTER 2020-12-19 21:46 | Emergency (ER) | payer OTHER ==
[~2020-12-19] VITALS: Ht 182.8 cm; Wt 127.0 kg
[2020-12-19 23:03] LABS: BASO % 0.6 % (0.0-1.0); EOS # 0.1 10*3/uL (0.0-0.4); EOS % 4.2 % (1.0-4.0); HEMATOCRIT 37.9 % (42.0-52.0); LYMPH # 0.7 10*3/uL (1.3-4.4); LYMPH % 22.8 % (27.0-41.0); MEAN CELL VOLUME 87.5 fl (80.0-94.0); MEAN CORPUSCULAR HGB 29.3 pg (27.0-31.0); MEAN CORPUSCULAR HGB CONC 33.5 g/dl (33.0-37.0); MONO # 0.4 10*3/uL (0.1-1.0); MONO % 13.5 % (3.0-9.0); NEUT # 1.8 10*3/uL (2.3-7.9); NEUT % 58.6 % (47.0-73.0); PLATELET COUNT AUTOMATED 232 10*3/uL (130-400); RED BLOOD COUNT 4.33 10*6/uL (4.50-5.90); RED CELL DISTRI WIDTH 13.2 % (0-14.5); WHITE BLOOD COUNT 3.1 10*3/uL (4.8-10.8)
== END 2020-12-19 23:45 | disposition home or self-care (01) ==
LOC: ED 21:46
PROVIDERS: Emergency Medicine
DX: Z48.01 Encounter for change or removal of surgical wound dressing (principal); I10 Essential (primary) hypertension; Z87.891 Personal history of nicotine dependence; Z98.890 Other specified postprocedural states; Z86.73 Personal history of transient ischemic attack (TIA), and cerebral infarction without residual deficits; Z79.01 Long term (current) use of anticoagulants; Z79.82 Long term (current) use of aspirin; Z79.899 Other long term (current) drug therapy; Z85.118 Personal history of other malignant neoplasm of bronchus and lung

== ENCOUNTER → 2021-03-18 | Outpatient (CLI) | payer OTHER ==
[2021-03-18 14:24] LABS: CHOLESTEROL 200 mg/dL (<200); LDL CHOLESTEROL 123 mg/dL (9-159); TRIGLYCERIDES 46 mg/dl (<150)
== END | disposition home or self-care (01) ==
LOC: LAB 12:20
PROVIDERS: ATTEND Specialist
DX: E78.2 Mixed hyperlipidemia (principal); I25.10 Atherosclerotic heart disease of native coronary artery without angina pectoris; I10 Essential (primary) hypertension

== ENCOUNTER → 2022-11-05 | Outpatient (CLI) | payer MEDICARE ==
[2022-11-05 11:37] LABS: HEMATOCRIT 30.5 % (42.0-52.0); MEAN CELL VOLUME 95.6 fl (80.0-94.0); MEAN CORPUSCULAR HGB 29.8 pg (27.0-31.0); MEAN CORPUSCULAR HGB CONC 31.1 g/dl (33.0-37.0); MEAN PLATELET VOLUME 9.4 fl (9.6-12.3); PLATELET COUNT AUTOMATED 228 10*3/uL (130-400); RED BLOOD COUNT 3.19 10*6/uL (4.50-5.90); RED CELL DISTRI WIDTH 12.9 % (0-14.5)
[2022-11-05 11:38] LABS: MANUAL DIFF REFLEX YES
[2022-11-05 11:42] LABS: WHITE BLOOD COUNT 1.8 10*3/uL (4.8-10.8)
[2022-11-05 11:50] LABS: ALKALINE PHOSPHATASE 53 U/L (46-116); BUN 7 mg/dl (9-23); CHLORIDE 103 mmol/L (98-107); TOTAL PROTEIN 5.2 gm/dL (6.0-8.0)
[2022-11-05 11:51] LABS: SGPT/ALT < 7 U/L (10-49)
[2022-11-05 12:06] LABS: TOTAL CELLS COUNTED 100 #CELLS
[2022-11-05 12:07] LABS: OVALOCYTES FEW; PLATELET SUFFICIENCY NORMAL (NORMAL); POLYCHROMASIA SLIGHT
== END | disposition home or self-care (01) ==
LOC: LAB 11:12
PROVIDERS: ATTEND Specialist
DX: A00-B99 Certain infectious and parasitic diseases (principal)

== ENCOUNTER → 2022-12-08 | Outpatient (CLI) | payer MEDICARE ==
[2022-12-08 12:23] LABS: BASO % 0.3 % (0.0-1.0); EOS # 0.1 10*3/uL (0.0-0.4); EOS % 1.7 % (1.0-4.0); HEMATOCRIT 31.3 % (42.0-52.0); LYMPH # 0.8 10*3/uL (1.3-4.4); LYMPH % 22.7 % (27.0-41.0); MEAN CELL VOLUME 89.7 fl (80.0-94.0); MEAN CORPUSCULAR HGB 28.9 pg (27.0-31.0); MEAN CORPUSCULAR HGB CONC 32.3 g/dl (33.0-37.0); MEAN PLATELET VOLUME 9.4 fl (9.6-12.3); MONO # 0.2 10*3/uL (0.1-1.0); NEUT # 2.4 10*3/uL (2.3-7.9); PLATELET COUNT AUTOMATED 197 10*3/uL (130-400); RED BLOOD COUNT 3.49 10*6/uL (4.50-5.90); RED CELL DISTRI WIDTH 13.6 % (0-14.5); WHITE BLOOD COUNT 3.5 10*3/uL (4.8-10.8)
[2022-12-08 12:42] LABS: ALKALINE PHOSPHATASE 56 U/L (46-116); BUN 13 mg/dl (9-23); CHLORIDE 108 mmol/L (98-107); TOTAL PROTEIN 5.7 gm/dL (6.0-8.0)
[2022-12-08 12:44] LABS: SGPT/ALT < 7 U/L (10-49)
== END | disposition home or self-care (01) ==
LOC: LAB 12:05
DX: B27.90 Infectious mononucleosis, unspecified without complication (principal); B25.9 Cytomegaloviral disease, unspecified

== ENCOUNTER 2023-03-18 23:57 | Inpatient (IN) | payer OTHER ==
[~2023-03-18 23:57] MED LIST changes: +BACTRIM 400-801 EACH PO; -OXYCODONE HCL15 MG PO; +OXYCODONE HYDRO15 MG PO
[2023-03-19] VITALS (9 sets, daily range): BP systolic 78–135; BP diastolic 47–543
[2023-03-19 00:36] LABS: MEAN CELL VOLUME 88.3 fl (80.0-94.0); MEAN CORPUSCULAR HGB 29.1 pg (27.0-31.0); MEAN CORPUSCULAR HGB CONC 32.9 g/dl (33.0-37.0); MEAN PLATELET VOLUME 9.5 fl (9.6-12.3); PLATELET COUNT AUTOMATED 138 10*3/uL (130-400); RED BLOOD COUNT 3.85 10*6/uL (4.50-5.90); RED CELL DISTRI WIDTH 18.9 % (0-14.5)
[2023-03-19 00:37] LABS: MANUAL DIFF REFLEX YES
[2023-03-19 00:47] LABS: ACT PARTIAL THROMBO TIME 47.8 SECONDS (20.0-32.1); INTERNATIONAL NORM RATIO 1.2 (2.0-3.5)
[2023-03-19 01:02] LABS: TOTAL CELLS COUNTED 100 #CELLS
[2023-03-19 01:03] LABS: BURR CELLS FEW; PLATELET SUFFICIENCY NORMAL (NORMAL)
[2023-03-19 01:06] LABS: ALKALINE PHOSPHATASE 88 U/L (46-116); BUN 15 mg/dl (9-23); CHLORIDE 92 mmol/L (98-107); LIPASE 20 U/L (12-53); SGPT/ALT 35 U/L (10-49); TOTAL PROTEIN 6.4 gm/dL (6.0-8.0)
[2023-03-19 01:31] LABS: ABG BASE EXCESS 0.4 mmol/L (-2.0-2.0); ARTERIAL BLOOD GAS PH 7.423 (7.35-7.45); ARTERIAL BLOOD GAS PO2 91.8 (80-90)
[2023-03-19] MEDS ORDERED: Duragesic 75 M75 MCG TD (13:59)
[2023-03-19] MEDS ORDERED: NATURAL SENNA8.6 MG PO (14:00)
[2023-03-19] MEDS ORDERED: PEG3350238 GM PO (14:01)
[2023-03-19] MEDS ORDERED: FEROSUL325 M1 PO (14:04)
[2023-03-19] MEDS ORDERED: NATURE'S BLEND F1 MG PO (14:05)
[2023-03-19] MEDS ORDERED: ELIQUIS5 M1 PO (14:07)
[2023-03-19] MEDS ORDERED: RESTASIS1 EACH OP (14:07)
[2023-03-20] VITALS: BP 106/60
[2023-03-20 08:00] VITALS: BP 107/82
[2023-03-20 12:00] VITALS: BP 103/63
[2023-03-20 16:00] VITALS: BP 97/64
[2023-03-20 20:00] VITALS: BP 98/60
[2023-03-21 08:02] VITALS: BP 105/65
[2023-03-21 12:00] VITALS: BP 124/73
[2023-03-21 16:00] VITALS: BP 134/86
[2023-03-21 20:00] VITALS: BP 92/53
[2023-03-22] VITALS: BP 103/49
[2023-03-22 08:00] VITALS: BP 101/76
[2023-03-22 12:00] VITALS: BP 120/84
[2023-03-22 16:00] VITALS: BP 102/67
[2023-03-22 20:00] VITALS: BP 117/75
[2023-03-23] VITALS: BP 119/75
[2023-03-23 08:00] VITALS: BP 107/83
[2023-03-23 12:00] VITALS: BP 105/65
[2023-03-23 16:00] VITALS: BP 129/84
[2023-03-23 20:00] VITALS: BP 126/72
[2023-03-24] VITALS: BP 177/71
[2023-03-24 08:00] VITALS: BP 130/90
[2023-03-24 12:00] VITALS: BP 122/82
[2023-03-24 16:00] VITALS: BP 124/73
[2023-03-24 20:00] VITALS: BP 128/79
[2023-03-25] VITALS: BP 111/72
[2023-03-25 08:00] VITALS: BP 111/75
[2023-03-25 12:00] VITALS: BP 126/88
[2023-03-25] MEDS ORDERED: MORPHINE S10 MG/5 M2 PO (15:01)
[2023-03-25 16:00] VITALS: BP 112/72
[2023-03-25] MEDS ORDERED: ONDANSETRON4 MG SL (16:49)
== END 2023-03-25 17:56 | disposition hospice, home (50) | DRG 871 ==
LOC: ED 23:57 → EDHOLD 03-19 16:41 → 5E 03-19 16:41
PROVIDERS: Internal Medicine; ADMIT Student in an Organized Health Care Education/Training Program; ATTEND Student in an Organized Health Care Education/Training Program
PROC: 5A09357 Assistance with Respiratory Ventilation, Less than 24 Consecutive Hours, Continuous Positive Airway Pressure (ICD-10-PCS; principal; 2023-03-19)
PROC: 5A0945A Assistance with Respiratory Ventilation, 24-96 Consecutive Hours, High Flow/Velocity Cannula (ICD-10-PCS; 2023-03-19)
DX: A41.9 Sepsis, unspecified organism (principal); I61.4 Nontraumatic intracerebral hemorrhage in cerebellum; J96.01 Acute respiratory failure with hypoxia; J18.9 Pneumonia, unspecified organism; E87.1 Hypo-osmolality and hyponatremia; E44.0 Moderate protein-calorie malnutrition; C34.90 Malignant neoplasm of unspecified part of unspecified bronchus or lung; C79.31 Secondary malignant neoplasm of brain; Z66 Do not resuscitate; E78.5 Hyperlipidemia, unspecified; I10 Essential (primary) hypertension; D70.1 Agranulocytosis secondary to cancer chemotherapy; T45.1X5A Adverse effect of antineoplastic and immunosuppressive drugs, initial encounter; D64.9 Anemia, unspecified; R73.9 Hyperglycemia, unspecified; S31.829A Unspecified open wound of left buttock, initial encounter; R65.20 Severe sepsis without septic shock; E87.8 Other disorders of electrolyte and fluid balance, not elsewhere classified; Z51.5 Encounter for palliative care; Z87.891 Personal history of nicotine dependence; Z82.49 Family history of ischemic heart disease and other diseases of the circulatory system; Z80.42 Family history of malignant neoplasm of prostate; Z86.73 Personal history of transient ischemic attack (TIA), and cerebral infarction without residual deficits; I25.2 Old myocardial infarction